=== PATIENT | male | born 1950 | race Caucasian/White ===

== ENCOUNTER 2017-12-20 08:16 | Day surgery (SDC) | payer OTHER, MEDICARE ==
[2017-12-20] MEDS ORDERED: LR 1,000 ML IV ONE (08:51)
[2017-12-20] MEDS ORDERED: LIDOCAINE 1% 2 ML INJ ID PRN (08:51)
--- NOTE | 2017-12-20 09:51 | PDGENHP ---
History & Physical Chief Complaint: phx polyps History of Present Illness: phs polyp removed in piecemeal Pertinent Past, Social, Family History: quit alcohol 2017. no tobacco. MGM polyps no colon cancer known Relevant Physical Exam: A+Ox3. CTA. S1S2. +BS, soft nt Cardiorespiratory Assessment: class 2
--- NOTE | 2017-12-20 09:53 | PDANEPAE ---
ANE History of Present Illness h/o polyps ANE Past Medical History - Cardiovascular History Hx Hypertension: Yes Hx Arrhythmias: No Hx Chest Pain: No Hx Coronary Artery / Peripheral Vascular Disease: No Hx CHF / Valvular Disease: No Hx Palpitations: No - Pulmonary History Hx COPD: No Hx Asthma/Reactive Airway Disease: No Hx Recent Upper Respiratory Infection: No Hx Oxygen in Use at Home: No Hx Sleep Apnea: Yes Sleep Apnea Screening Result - Last Documented: Positive - Neurologic History Hx Cerebrovascular Accident: No Hx Seizures: No Hx Dementia: No - Endocrine History Hx Diabetes: No - Renal History Hx Renal Disorders: No - Liver History Hx Hepatic Disorders: No - Neurological & Psychiatric Hx Hx Neurological and Psychiatric Disorders: Yes Neurological / Psychiatric History Comment: am stiffness/numbness of hands - Cancer History Hx Cancer: Yes Cancer History Comment: cancerous polyp - Congenital Disorder History Hx Congenital Disorders: No - GI History Hx Gastrointestinal Disorders: No - Other Health History Other Health History: osteo arthritis, - Chronic Pain History Chronic Pain: Yes (both hands,right ankle) - Surgical History Prior Surgeries: bilat miniscusectomy ANE Review of Systems Review of Systems: - Exercise capacity METS (RN): 4 METS ANE Patient History - Allergies Allergies/Adverse Reactions: No Known Allergies Allergy (Verified 12/13/17 10:22) - Home Medications Home Medications: Amlodipine Besylate 12/13/17 [Last Taken 12/20/17 09:02] Losartan Potassium 12/13/17 [Last Taken 12/20/17 09:02] - NPO status NPO Since - Liquids (Date): 12/20/17 NPO Since - Liquids (Time): 00:30 NPO Since - Solids (Date): 12/19/17 NPO Since - Solids (Time): 08:45 - Smoking Hx Smoking Status: Never smoked - Family Anes Hx Family Hx Anesthesia Complications: none ANE Labs/Vital Signs - Labs Result Diagrams: 12/20/17 08:55 - Vital Signs Blood Pressure: 130/79 Heart Rate: 83 Respiratory Rate: 16 O2 Sat (%): 96 Height: 167.64 cm Weight: 74.843 kg ANE Physical Exam - Airway Neck exam: FROM Mallampati Score: Class 2 Mouth exam: normal dental/mouth exam - Pulmonary Pulmonary: no respiratory distress - Cardiovascular Cardiovascular: regular rate and rhythym - ASA Status ASA Status: II ANE Anesthesia Plan Total IV Anesthesia: Yes
[2017-12-20] MEDS ORDERED: PROPOFOL 200 MG/20 ML VIAL ONE ×2 (09:54)
[2017-12-20] MEDS ORDERED: NALOXONE HCL 0.4 MG/ML INJ IVP PRN (10:01)
--- NOTE | 2017-12-20 10:29 | POSTANESTH ---
Post Anesthetic Evaluation Cardiovascular Status: Normal, Stable Respiratory Status: Normal, Stable Level of Consciousness/Mental Status: Can Participate in Eval Pain Control: Adequate, Prn Tx Ordered Nausea/Vomiting Control: Adequate, Prn Tx Ordered Complications Possibly Related to Anesthesia: None Noted
--- NOTE | 2017-12-20 10:58 | GIREPORT ---
[facility] - Endoscopy Department Patient Name: Nitin Lewis Procedure Date: 12/20/2017 9:47 AM Patient Type: Outpatient Attending MD/ ER Physician: Epi Anderson Procedure: Colonoscopy Indications: High risk colon cancer surveillance: Personal history of adenoma (10 mm or greater in size), High risk colon cancer surveillance: Personal history of adenoma with high grade dysplasia Providers: Everton Alaniz MD Referring MD: Clovis Sapp MD Medicines: Total IV Anesthesia (TIVA) = IV general Complications: No immediate complications. Estimated blood loss: Minimal. Description of Procedure: After obtaining informed consent, the scope was passed under direct vis ion. Throughout the procedure, the patient's blood pressure, pulse, and oxyg en saturations were monitored continuously. The Colonoscope with irrigatio n channel was introduced through the anus and advanced to the terminal il eum, with identification of the appendiceal orifice and IC valve. The colono scopy was performed without difficulty. The patient tolerated the procedure w ell. The quality of the bowel preparation was good. Findings: The digital rectal exam was normal. The terminal ileum appeared normal. A post polypectomy scar was found in the mid transverse colon. The scar tissue was healthy in appearance. There was no evidence of the previous polyp. Biopsies were taken with a cold forceps for histology. Estimated blood loss was minimal. A 3 mm polyp was found in the recto-sigmoid colon. The polyp was semi-sessile. The polyp was removed with a piecemeal technique using a cold biopsy forceps. Resection and retrieval were complete. Estimated blood loss was minimal. Multiple small and large-mouthed diverticula were found in the sigmoid colon, descending colon, transverse colon and ascending colon. The exam was otherwise without abnormality. Estimated Blood Loss: Estimated blood loss was minimal. Post Op Diagnosis: - The examined portion of the ileum was normal. - Post-polypectomy scar in the mid transverse colon. Biopsied. - One 3 mm polyp at the recto-sigmoid colon, removed piecemeal using a cold biopsy forceps. Resected and retrieved. - Diverticulosis in the sigmoid colon, in the descending colon, in the transverse colon and in the ascending colon. - The examination was otherwise normal. Recommendation: - Await pathology results. - My office will call with the pathology result with 5-7 days. If you h ave not heard from my office by -14, do not assume the pathology is nick l, please call [phone] to get the pathology results. - Repeat colonoscopy in 3 years for surveillance based on pathology res ults. - High fiber diet indefinitely. - 30-35 grams of dietary fiber per day. Can use supplemental fiber. - A high fiber diet may decrease risk of complications from diverticulo sis. There is no need to avoid seeds or nuts. - Patient has a contact number available for emergencies. The signs and symptoms of potential delayed complications were discussed with the pat ient. Return to normal activities tomorrow. Written discharge instructions we re provided to the patient. - Continue present medications. - Avoid Aspirin and NSAID's for 7-10 days except as used for cardiac or stroke prevention. - Discharge patient to home (ambulatory). - Return to primary care physician as previously scheduled. - Thank you for allowing me to help in your patient's care. Do not hesi short to call with any questions. Attending Participation: I personally performed the entire procedure. Katty Toscano M.D Everton Alaniz MD 12/20/2017 10:57:48 AM This report has been signed electronicallyMathew MD Katty Number of Addenda: 0 Note Initiated On: 12/20/2017 9:47 AM Total Procedure Duration Time 0 hours 18 minutes 28 seconds [email or web address]
[2017-12-20 11:11] VITALS: TEMP 97.3
[2017-12-20 11:32] VITALS: BP 113/73; PULSE 69; RESP 14
[2017-12-20 11:35] VITALS: O2SAT 96
== END 2017-12-20 11:42 | disposition home or self-care (01) ==
LOC: FSGY 08:16
PROVIDERS: ATTEND Internal Medicine Gastroenterology
PROC: 0DBL8ZX Excision of Transverse Colon, Via Natural or Artificial Opening Endoscopic, Diagnostic (ICD-10-PCS; principal; 2017-12-20 09:45)
PROC: 0DBN8ZX Excision of Sigmoid Colon, Via Natural or Artificial Opening Endoscopic, Diagnostic (ICD-10-PCS; principal; 2017-12-20 09:45)
DX: K63.5 Polyp of colon (principal); K57.30 Diverticulosis of large intestine without perforation or abscess without bleeding; R53.83 Other fatigue; R79.89 Other specified abnormal findings of blood chemistry; M10.9 Gout, unspecified; I10 Essential (primary) hypertension; G47.33 Obstructive sleep apnea (adult) (pediatric); F10.11 Alcohol abuse, in remission; E66.3 Overweight; Z87.891 Personal history of nicotine dependence; Z86.010 Personal history of colon polyps
CPT/HCPCS: J2704